=== PATIENT | female | born 1985 | race Two or more races ===

== ENCOUNTER 2023-01-28 09:50 | Emergency (ER) | payer OTHER ==
[~2023-01-28] VITALS: Ht 167.6 cm; Wt 81.6 kg
[2023-01-28 13:33] LABS: HEMATOCRIT 30.2 % (36.0-45.00); HEMOGLOBIN 9.4 g/dL (12.0-15.00); MEAN CORPUSCULAR HEMOGLOBIN 21.1 pg (27.00-32.0); PLATELET COUNT 460 K/uL (150-450); RED BLOOD COUNT 4.43 M/uL (4.00-6.00); RED CELL DISTRIBUTION WIDTH 17.9 % (11.5-14.5)
[2023-01-28 13:34] LABS: MEAN CELL VOLUME 68.2 fL (80.00-100.00)
[2023-01-28 14:05] LABS: PH,URINE 7.5 (5.0-8.0); URINE APPEARANCE Cloudy; URINE BILIRRUBIN Negative (NEGATIVE); URINE BLOOD Large; URINE COLOR Yellow; URINE GLUCOSE Negative (NEGATIVE); URINE LEUKOCYTE Moderate; URINE NITRATE Negative; URINE PROTEIN Negative (NEGATIVE); URINE UROBILINOGEN 0.2 E.U./dl
[2023-01-28 14:08] LABS: ALBUMIN 3.6 gm/dL (3.4-5.0); BILIRUBIN TOTAL 0.23 mg/dL (0.3-1.2); CALCIUM 9.2 mg/dL (8.5-10.1); CREATININE SERUM 0.56 mg/dL (0.55-1.02); GFR 120.52; GLOBULINA 4.6 G/DL (2.4-3.5); POTASSIUM 3.66 mEq/L (3.5-5.1); TOTAL PROTEIN 8.2 gm/dL (6.4-8.2)
[2023-01-28 14:09] LABS: URINE WBC 160.3 uL (0.0-23.2)
== END 2023-01-28 19:38 | disposition home or self-care (01) ==
LOC: ER 09:50
PROVIDERS: Emergency Medicine
DX: O20.8 Other hemorrhage in early pregnancy (principal); Z3A.01 Less than 8 weeks gestation of pregnancy

== ENCOUNTER 2024-03-10 14:55 | Emergency (ER) | payer OTHER ==
[~2024-03-10] VITALS: Ht 162.6 cm; Wt 65.8 kg
[2024-03-10 18:07] LABS: HEMATOCRIT 29.4 % (36.0-45.00); HEMOGLOBIN 9.1 g/dL (12.0-15.00); MEAN CORPUSCULAR HEMOGLOBIN 20.6 pg (27.00-32.0); MEAN CORPUSCULAR HGB CONC 30.9 g/dl (32.0-36.0); PLATELET COUNT 490 K/uL (150-450); RED BLOOD COUNT 4.42 M/uL (4.00-6.00); RED CELL DISTRIBUTION WIDTH 18.8 % (11.5-14.5)
[2024-03-10 18:11] LABS: MEAN CELL VOLUME 66.5 fL (80.00-100.00)
[2024-03-10] MEDS ORDERED: ZITHROMAX TRI-500 MG PO (20:07)
[2024-03-10] MEDS ORDERED: GILTUSS COUGH-118 M1 PO (20:07)
[2024-03-10] MEDS ORDERED: ACETAMINOPHEN500 M1 PO (20:07)
[2024-03-10] MEDS ORDERED: CEFTRIAXONE SODIUM 1,000 MG VIAL IM ONE (20:30)
[2024-03-10] MEDS ORDERED: LIDOCAINE HCL 1% 10ML VIAL ONE (20:33)
[2024-03-10] MEDS ORDERED: CEFTRIAXONE SODIUM 1,000 MG VIAL ONE (20:33)
== END 2024-03-10 20:40 | disposition home or self-care (01) ==
LOC: ER 14:58
PROVIDERS: Preventive Medicine Public Health & General Preventive Medicine
DX: J06.9 Acute upper respiratory infection, unspecified (principal); Z20.822 Contact with and (suspected) exposure to COVID-19